=== PATIENT | female | born 1975 | race Caucasian/White ===

== ENCOUNTER 2016-03-16 07:59 | Emergency (ER) | payer MEDICAID ==
[2016-03-16] MEDS ORDERED: METOCLOPRAMIDE 10 MG TAB ONE (09:27)
[2016-03-16] MEDS ORDERED: DIPHENHYDRAMINE 25 MG CAP ONE (09:27)
[2016-03-16] MEDS ORDERED: DILAUDID 1 MG/ML AMP ONE (09:28)
== END 2016-03-16 11:13 | disposition home or self-care (01) ==
LOC: ER 07:59
CPT/HCPCS: 96372

== ENCOUNTER 2016-04-10 09:23 | Emergency (ER) | payer MEDICAID | END 2016-04-10 12:25 | disposition home or self-care (01) | LOC: ER 09:23 | DX: F33.1 Major depressive disorder, recurrent, moderate (principal); R45.851 Suicidal ideations; N30.00 Acute cystitis without hematuria; F17.210 Nicotine dependence, cigarettes, uncomplicated | CPT/HCPCS: 36415; 80053; 80307; 80320; 80329; 81001; 84439; 84443; 85025; 85610; 87088 ==

== ENCOUNTER 2016-04-23 07:22 | Emergency (ER) | payer MEDICAID ==
[2016-04-23] MEDS ORDERED: HALOPERIDOL 5 MG/ML VIAL ONE (07:57)
[2016-04-23] MEDS ORDERED: DIPHENHYDRAMINE 50 MG/ML VIAL ONE ×2 (07:57→09:59)
[2016-04-23] MEDS ORDERED: SODIUM CHLORIDE 0.9% 1,000 ML ONE ×2 (07:58→10:00)
[2016-04-23] MEDS ORDERED: ONDANSETRON 4 MG VIAL ONE (07:58)
[2016-04-23] MEDS ORDERED: METOCLOPRAMIDE 10 MG/2 ML VIAL ONE (09:59)
== END 2016-04-23 11:28 | disposition home or self-care (01) ==
LOC: ER 07:22
DX: G43.019 Migraine without aura, intractable, without status migrainosus (principal); F17.210 Nicotine dependence, cigarettes, uncomplicated
CPT/HCPCS: 96361; 96374; 96375; 96376